=== PATIENT | female | born 1965 | race Caucasian/White ===

== ENCOUNTER 2017-11-04 12:12 | Inpatient (IN) | payer MEDICARE, OTHER ==
[~2017-11-04] VITALS: Ht 172.7 cm; Wt 127.0 kg
[~2017-11-04 12:12] MED LIST: CELEXA20 MG PO; OS-CAL 500+D T1 EACH PO; SAPHRIS10 MG SL; XANAX2 MG PO; ZOLOFT PO
--- OUTSIDE RECORDS SUMMARY | 2017-11-04 12:15 | XMS REPORT | Clinical Summary ---
Author Author [facility] Address Unknown Phone Unavailable Care Team Providers Care Manager Pulmonary Name Role Phone PCP Unavailable Allergies Not on File Current Medications Not on file Active Problems Not on file Encounters Date Type Specialty Care Team Description 10/10/2017 Telephone Transplant Melia Price, Transplant Donor RN Pre-evaluation 09/15/2017 Abstract Transplant Joseluis Luque after 11/03/2016 Social History Tobacco Use Types Packs/Day Years Used Date Never Assessed Sex Assigned at Date Recorded Not on file Last Filed Vital Signs Not on file Plan of Treatment Health Maintenance Due Date Last Done Comments INFLUENZA VACCINE 04/20/2018 Results Not on fileafter 11/03/2016
[2017-11-04 14:09] LABS: BASOPHILS % 0.4 % (0.0-1.0); EOSINOPHILS # (AUTO) 0.1 (0.0-0.4); EOSINOPHILS % 1.5 % (0.0-6.0); LYMPHOCYTES # (AUTO) 1.4 (1.0-3.2); LYMPHOCYTES % 14.6 % (18.0-39.1); MEAN CORPUSCULAR HGB CONC 29.3 g/dL (31-35); MEAN CORPUSCULAR VOLUME 92.3 fL (81-99); MONOCYTES # (AUTO) 0.6 (0.2-0.8); MONOCYTES % 6.2 % (4.4-11.3); NEUTROPHILS # (AUTO) 7.2 (2.1-6.9); NEUTROPHILS % 76.4 % (38.7-80.0); PLATELET COUNT 396 x10e3/uL (140-360); RED BLOOD COUNT 1.96 x10e6/uL (3.6-5.1); RED CELL DISTRIBUTION WIDTH 14.2 % (11.7-14.4)
[2017-11-04 14:12] LABS: HEMATOCRIT 18.1 % (34.2-44.1); HEMOGLOBIN 5.3 g/dL (12.0-16.0)
[2017-11-04] MEDS ORDERED: ACETAMINOPHEN 325 MG TAB PO STA (14:13)
[2017-11-04] MEDS ORDERED: SODIUM CHLORIDE 0.9% 250ML 250 ML IV ONE (14:15)
[2017-11-04] MEDS ORDERED: DIPHENHYDRAMINE HCL INJ 50 MG/ML VIAL IV ONE (14:15)
[2017-11-04 14:18] LABS: INR 1.28; PARTIAL THROMBOPLASTIN TIME 26.8 seconds (23.8-35.5)
[2017-11-04 14:27] LABS: ALBUMIN 3.5 g/dL (3.5-5.0); ALBUMIN/GLOBULIN RATIO 1.1 (0.8-2.0); ANION GAP 13.8 mmol/L (8-16); CALCIUM 9.2 mg/dL (8.4-10.2); CREATININE, SERUM 1.01 mg/dL (0.57-1.11); POTASSIUM 3.8 mmol/L (3.5-5.1)
[2017-11-04 14:35] LABS: BILIRUBIN,URINE NEGATIVE (NEGATIVE); CLARITY,URINE CLEAR (CLEAR); COLOR,URINE YELLOW (YELLOW); KETONES,URINE NEGATIVE (NEGATIVE); LEUKOCYTE ESTERASE ,URINE 1+ (NEGATIVE); NITRITE,URINE NEGATIVE (NEGATIVE); PROTEIN,URINE DIPSTICK NEGATIVE (NEGATIVE); URINE UROBILINOGEN 0.2 mg/dL (0.2 - 1)
[2017-11-04 14:47] LABS: EPITHELIAL CELLS,URINE FEW /LPF; RENAL EPITHELIAL CELLS,URINE FEW; TRANSITIONAL EPI CELLS,URINE FEW
--- OUTSIDE RECORDS SUMMARY | 2017-11-04 14:56 | XMS REPORT | Clinical Summary ---
Author Author LEDA [facility] Address Unknown Phone Unavailable Care Team Providers Care Trapper Bird Name Role Phone PCP Unavailable Allergies Not on File Current Medications Not on file Active Problems Not on file Encounters Date Type Specialty Care Team Description 11/04/2017 Orders Only Transplant Melia Price, Transplant donor RN evaluation (Primary Dx) 10/10/2017 Telephone Transplant Melia Price, Transplant Donor RN Pre-evaluation 09/15/2017 Abstract Transplant Joseluis Luque after 11/03/2016 Social History Tobacco Use Types Packs/Day Years Used Date Never Assessed Sex Assigned at Date Recorded Not on file Last Filed Vital Signs Not on file Plan of Treatment Date Type Specialty Care Team Description 11/17/2017 Orders Only Transplant Hepatology Tiara Mello MD [address] [address] [phone] 11/17/2017 Office Visit Transplant Tiara Mello MD [address] [address] [phone] Melia Stauffer, RN Aaron Hobbs Health Maintenance Due Date Last Done Comments INFLUENZA VACCINE 04/20/2018 Results Not on fileafter 11/03/2016
[2017-11-04] MEDS: PANTOPRAZOLE 40 MG 10ML VIAL IV SCH (15:30)
[2017-11-04 17:55] VITALS: BP 127/59
[2017-11-04 17:57] VITALS: BP 127/59
[2017-11-04] MEDS ORDERED: VITAMIN B-121000 MCG PO (18:47)
[2017-11-04] MEDS ORDERED: BUDESONIDE EC3 MG PO (18:47)
[2017-11-04] MEDS ORDERED: MULTI-VITAMIN1 EACH (18:47)
[2017-11-04] MEDS ORDERED: PENTASA500 MG PO (18:47)
[2017-11-04] MEDS ORDERED: VITAMIN D35000 UNIT (18:47)
[2017-11-04] MEDS ORDERED: FLOMAX0.4 MG PO (18:47)
[2017-11-04] MEDS ORDERED: BIOTIN2500 MCG PO (18:47)
[2017-11-04 20:00] VITALS: BP 127/62
[2017-11-04 20:19] VITALS: BP 127/62
[2017-11-04] MEDS ORDERED: SODIUM CHLORIDE 0.9% 500ML 500 ML ONE (20:25)
[2017-11-04] MEDS ORDERED: ALPRAZOLAM 0.5 MG TAB PO SCH (21:00)
[2017-11-04] MEDS: ALPRAZOLAM 1 MG TAB PO SCH (21:00)
[2017-11-04] MEDS ORDERED: DIPHENHYDRAMINE HCL 25 MG CAP PO ONE (21:00)
[2017-11-04] MEDS: DIPHENHYDRAMINE HCL 25 MG CAP PO SCH (21:23)
[2017-11-05] VITALS (7 sets, daily range): BP systolic 92–134; BP diastolic 51–72
--- NOTE | 2017-11-05 00:42 | Consultation ---
DATE OF CONSULTATION: November 04, 2017 This is a 52-year-old who has history of supposedly Crohn's disease, history of bipolar and also history of obstructive sleep apnea who presented to the hospital because of history of melena and "bloody stool". She was taking Motrin. An EGD as an outpatient was attempted but was unsuccessful. She felt lightheaded and she was found to have anemia with hemoglobin as low as 5.3. She denies any abdominal pain, nausea or vomiting. Her other medical problems include history of bipolar disorder, history of obstructive sleep apnea, status post hysterectomy. FAMILY HISTORY: Significant for diabetes. ALLERGIES: PENICILLIN AND SULFA. SOCIAL HISTORY: Quit smoking 3 years ago. No alcohol use. REVIEW OF SYSTEMS: Denies any chest pain. Denies any shortness of breath. Denies any dysphagia or odynophagia. Denies any dysuria or hematuria or any kind of syncopal episode. MEDICATIONS: On admission, Xanax, , budesonide, calcium, Calciferol, Pentasa, multivitamin and Tamsulosin. PHYSICAL EXAMINATION GENERAL: The patient is awake, alert, appears to be stable and not in any acute distress at this point. VITAL SIGNS: Afebrile currently with stable vital signs. HEENT: Normocephalic, atraumatic. Sclerae anicteric. NECK: Supple. HEART: Sounds regular. LUNGS: Sounds clear. ABDOMEN: Soft. There is no distention at this point. Nontender. EXTREMITIES: No clubbing. LABORATORY DATA: Significant for WBC of 9.48, hemoglobin of 5.3, hematocrit of 18.1. PTT is 15 and CMP is normal. IMPRESSION 1. Gastrointestinal bleed with black tarry stool, possibility of ulcer disease. 2. History of Crohn's disease. 3. History of bipolar. RECOMMENDATIONS: Continue on proton pump inhibitor at this point. Transfuse with packed red blood cells. Will proceed with EGD tomorrow and follow labs. Job#: [id number]
[2017-11-05 06:41] LABS: BASOPHILS # (AUTO) 0.1 (0.0-0.1); BASOPHILS % 0.8 % (0.0-1.0); EOSINOPHILS # (AUTO) 0.2 (0.0-0.4); EOSINOPHILS % 2.1 % (0.0-6.0); HEMATOCRIT 23.5 % (34.2-44.1); HEMOGLOBIN 7.6 g/dL (12.0-16.0); LYMPHOCYTES # (AUTO) 1.7 (1.0-3.2); LYMPHOCYTES % 16.9 % (18.0-39.1); MEAN CORPUSCULAR HEMOGLOBIN 28.5 pg (28-32); MEAN CORPUSCULAR HGB CONC 32.3 g/dL (31-35); MONOCYTES # (AUTO) 0.9 (0.2-0.8); MONOCYTES % 8.5 % (4.4-11.3); NEUTROPHILS # (AUTO) 7.2 (2.1-6.9); NEUTROPHILS % 70.3 % (38.7-80.0); PLATELET COUNT 441 x10e3/uL (140-360); RED BLOOD COUNT 2.67 x10e6/uL (3.6-5.1); RED CELL DISTRIBUTION WIDTH 15.8 % (11.7-14.4)
[2017-11-05] MEDS ORDERED: DIPHENHYDRAMINE HCL 25 MG CAP PO ONE (07:00)
[2017-11-05 07:12] LABS: ANION GAP 12.2 mmol/L (8-16); BLOOD UREA NITROGEN 15 mg/dL (7-26); BUN/CREATININE RATIO 16 (6-25); CALCIUM 9.1 mg/dL (8.4-10.2); CARBON DIOXIDE 26 mmol/L (22-29); CHLORIDE 107 mmol/L (98-107); CREATININE, SERUM 0.92 mg/dL (0.57-1.11); EST GLOMERULAR FILTRATION RATE > 60 ML/MIN (60-); GLUCOSE 96 mg/dL (74-118); POTASSIUM 4.2 mmol/L (3.5-5.1); SODIUM 141 mmol/L (136-145)
[2017-11-05] MEDS: PANTOPRAZOLE 40 MG 10ML VIAL IV SCH (08:10)
[2017-11-05] MEDS: DIPHENHYDRAMINE HCL 25 MG CAP PO SCH ×4 (09:00→20:59)
[2017-11-05] MEDS: ALPRAZOLAM 1 MG TAB PO SCH ×3 (09:00→20:59)
[2017-11-05] MEDS ORDERED: BISACODYL 5 MG TAB EC PO NR (13:00)
[2017-11-05] MEDS ORDERED: PEG (High)/E-LYTE SOLN 4,000 ML BTL PO NR (13:30)
[2017-11-05] MEDS ORDERED: PROPOFOL IV EMULSION 10 MG/ML 20 ML VIAL ONE (17:01)
[2017-11-05] MEDS ORDERED: LIDOCAINE HCL 2% LOCAL INJ 5 ML SDV VIAL INJ ONE (17:01)
[2017-11-05] MEDS: TAMSULOSIN HCL 0.4 MG CAP PO SCH (17:04)
[2017-11-05] MEDS ORDERED: ONDANSETRON HCL INJ 2 MG/ML VIAL IV PRN (17:15)
[2017-11-05] MEDS ORDERED: MIDAZOLAM HCL 2 MG/2 ML VIAL ONE (19:51)
[2017-11-05] MEDS ORDERED: BISACODYL 5 MG TAB EC PO ONE (20:00)
[2017-11-05] MEDS: BUDESONIDE 3 MG CAPCR PO SCH (20:59)
[2017-11-05] MEDS: MESALAMINE 500 MG CAPCR PO SCH (20:59)
[2017-11-06] VITALS: BP 101/54
[2017-11-06 04:00] VITALS: BP 115/58
[2017-11-06 07:09] LABS: BASOPHILS # (AUTO) 0.1 (0.0-0.1); BASOPHILS % 0.7 % (0.0-1.0); EOSINOPHILS # (AUTO) 0.2 (0.0-0.4); EOSINOPHILS % 2.1 % (0.0-6.0); HEMATOCRIT 26.1 % (34.2-44.1); HEMOGLOBIN 8.1 g/dL (12.0-16.0); LYMPHOCYTES # (AUTO) 1.4 (1.0-3.2); LYMPHOCYTES % 16.2 % (18.0-39.1); MEAN CORPUSCULAR HEMOGLOBIN 27.9 pg (28-32); MONOCYTES # (AUTO) 0.8 (0.2-0.8); NEUTROPHILS # (AUTO) 6.1 (2.1-6.9); NEUTROPHILS % 71.5 % (38.7-80.0); PLATELET COUNT 420 x10e3/uL (140-360); RED CELL DISTRIBUTION WIDTH 15.8 % (11.7-14.4)
[2017-11-06 07:32] LABS: ANION GAP 13.2 mmol/L (8-16); CALCIUM 9.3 mg/dL (8.4-10.2); CREATININE, SERUM 0.97 mg/dL (0.57-1.11); POTASSIUM 4.2 mmol/L (3.5-5.1)
[2017-11-06 07:35] VITALS: BP 125/62
[2017-11-06] MEDS ORDERED: LORAZEPAM INJ 2 MG/ML VIAL IV ONE (08:00)
[2017-11-06] MEDS: DIPHENHYDRAMINE HCL 25 MG CAP PO SCH ×2 (08:05→13:00)
[2017-11-06] MEDS: ALPRAZOLAM 1 MG TAB PO SCH ×2 (08:05→15:15)
[2017-11-06] MEDS ORDERED: MULTIVITAMINS/MINERALS TAB PO SCH (09:00)
[2017-11-06] MEDS ORDERED: CYANOCOBALAMIN 1,000 MCG TAB PO SCH (09:00)
[2017-11-06] MEDS: TAMSULOSIN HCL 0.4 MG CAP PO SCH ×2 (09:00→16:42)
[2017-11-06] MEDS ORDERED: OYST-CAL-D 500MG TABLET PO SCH (09:00)
[2017-11-06] MEDS: BUDESONIDE 3 MG CAPCR PO SCH ×2 (09:00→15:15)
[2017-11-06] MEDS ORDERED: CITALOPRAM HYDROBROMIDE 20 MG TAB PO SCH (09:00)
[2017-11-06] MEDS: MESALAMINE 500 MG CAPCR PO SCH ×2 (09:00→15:15)
[2017-11-06 09:45] VITALS: BP 125/62
[2017-11-06] MEDS ORDERED: ACETAMINOPHEN 325 MG TAB PO PRN (10:30)
[2017-11-06] MEDS: PANTOPRAZOLE 40 MG 10ML VIAL IV SCH (10:45)
[2017-11-06] MEDS ORDERED: ONDANSETRON HCL 4 MG ORAL DISINTEGRATING TAB PO PRN (12:15)
[2017-11-06 13:24] VITALS: BP 126/60
[2017-11-06 15:35] VITALS: BP 138/63
--- NOTE | 2017-11-06 17:08 | Discharge Summary ---
PRIMARY CARE DOCTOR: Dr. Robbin Jackson FINAL DIAGNOSIS: Acute blood loss anemia. SECONDARY DIAGNOSES 1. Crohn disease, stable. 2. Bipolar disorder. CABINET WORKER: Dr. Diego of GI. PROCEDURES/STUDIES PERFORMED 1. Esophagogastroduodenoscopy. 2. Colonoscopy. HISTORY: Per [facility]. HOSPITAL COURSE: The patient received 2 units of blood. At the time of discharge, her hemoglobin is 8. Both her EGD and colonoscopy were fairly unremarkable, other than a little bit of gastritis. Potentially, this might be because her bleed was almost 3 weeks ago, and that is why we are not seeing them. The other possibility is that the bleeder comes and goes, so we did not catch it. One possibility would be getting a capsule endoscopy as an outpatient, especially if this recurs. I have updated her PCP, and she may need to follow up with her GI doctor. I have updated the patient as well. The patient was seen and examined today. It took 32 minutes total today to discharge this patient. CONDITION ON DISCHARGE: Stable. DISCHARGE MEDICATIONS: Please see medication reconciliation form. DAYANARA RAMÍREZ M.D. Job#: [id number] cc:ROBBIN JACKSON M.D.
[2017-11-06] MEDS ORDERED: PROPOFOL IV EMULSION 10 MG/ML 20 ML VIAL ONE (17:50)
[2017-11-06] MEDS ORDERED: LIDOCAINE HCL 2% LOCAL INJ 5 ML SDV VIAL INJ ONE (17:50)
== END 2017-11-06 18:13 | disposition home or self-care (01) | DRG 812 ==
LOC: ER 12:12 → ERHOLD 14:54 → MED/SURG3 17:22
PROVIDERS: ADMIT Internal Medicine; ATTEND Internal Medicine
PROC: 30233N1 Transfusion of Nonautologous Red Blood Cells into Peripheral Vein, Percutaneous Approach (ICD-10-PCS; 2017-11-04)
PROC: 0DB68ZX Excision of Stomach, Via Natural or Artificial Opening Endoscopic, Diagnostic (ICD-10-PCS; 2017-11-05)
PROC: 0DB38ZX Excision of Lower Esophagus, Via Natural or Artificial Opening Endoscopic, Diagnostic (ICD-10-PCS; 2017-11-05)
PROC: 0DJD8ZZ Inspection of Lower Intestinal Tract, Via Natural or Artificial Opening Endoscopic (ICD-10-PCS; principal; 2017-11-06 13:30)
DX: D62 Acute posthemorrhagic anemia (principal); K50.90 Crohn's disease, unspecified, without complications; K92.2 Gastrointestinal hemorrhage, unspecified; F31.9 Bipolar disorder, unspecified; G47.33 Obstructive sleep apnea (adult) (pediatric); K64.8 Other hemorrhoids; K44.9 Diaphragmatic hernia without obstruction or gangrene; K29.70 Gastritis, unspecified, without bleeding
CPT/HCPCS: 36415; 43239; 45378; 80048; 80053; 81001; 82270; 85025; 85610; 85730; 86850; 86900; 86920; 88305; 88312; 99284; J1200; J2001; J2060; J2250; J2405; J7040; J7050; P9016

== ENCOUNTER 2018-06-30 11:36 | Emergency (ER) | payer MEDICARE ==
[~2018-06-30] VITALS: Ht 172.7 cm; Wt 127.0 kg
[~2018-06-30 11:36] MED LIST changes: +BIOTIN2500 MCG PO; +BUDESONIDE EC3 MG PO; +FLOMAX0.4 MG PO; +MULTI-VITAMIN1 EACH; +PENTASA500 MG PO; +VITAMIN B-121000 MCG PO; +VITAMIN D35000 UNIT
--- OUTSIDE RECORDS SUMMARY | 2018-06-30 11:39 | XMS REPORT | Clinical Summary ---
Author [facility] Address Unknown Phone Unavailable Care Team Providers Care Harpsichord Maker Name Role Phone Sharpless PCP Allergies Comments Active Allergy Reactions Severity Noted Date Extreme Vomiting Amoxicillin Nausea And 07/31/2017 Vomiting Elevated Liver enzymes-patient stated not a true allergy Azathioprine Other (See 10/08/2017 Comments) Extreme Vomiting Sulfa (Sulfonamide Nausea And 07/31/2017 Antibiotics) Vomiting Medications End Date Status Medication Sig Dispensed Refills Start Date Active ALPRAZolam (XANAX) 2 MG Take 2 mg by 0 tablet mouth. Active asenapine [address] 10 mg 0 under the tongue once at bedtime. Active biotin 10 mg Tab Take 10,000 0 mcg by mouth once. Active budesonide (ENTOCORT EC) Take 9 mg by 0 3 mg 24 hr capsule mouth daily. 8 Active calcium carbonate-vitamin Take by 0 D3 (OSCAL-D) 500 mouth. mg(1,250mg) -200 unit per tablet Active cholecalciferol, vitamin Take 5,000 0 D3, 5,000 unit capsule Units by mouth. Active citalopram (CELEXA) 40 MG Take 40 mg by 0 tablet mouth daily. Active cyanocobalamin, vitamin Take 3,000 0 B-12, 1,000 mcg/mL Drop mcg by mouth daily. Active geriatric Take by 0 multivitamin-min tablet mouth. Active BACILLUS COAGULANS Take by 0 (PROBIOTIC, B. COAGULANS, mouth. ORAL) Active diphenhydrAMINE Take 25 mg by 0 (BENADRYL) 25 mg tablet mouth daily. Active levocetirizine (XYZAL) 5 Take 5 mg by 0 MG tablet mouth daily. Active mesalamine (PENTASA) 500 Take 1,000 mg 0 01/23/201 MG CR capsule by mouth 3 8 (three) times daily. 11/24/2017 tamsulosin (FLOMAX) 0.4 Take 0.4 mg 0 08/26/201 mg Cp24 24 hr capsule by mouth 2 8 (two) times daily. Active Problems Not on file Encounters Care Team Description Date Type Specialty Brigitte Richardson RN Follow-up 12/11/2017 Telephone Transplant Brigitte Richardson RN Results 12/04/2017 Telephone Transplant Tiara Mello MD Transplant donor evaluation 11/28/2017 Hospital Radiology Encounter Tiara Mello MD Springer, Laura L, LCSW Transplant donor evaluation (Primary Dx) 11/28/2017 Evaluation Transplant Tiara Mello MD Transplant donor evaluation 11/28/2017 Hospital Cardiology Encounter Tiara Mello MD Transplant donor evaluation 11/28/2017 Orders Only Transplant Hepatology Tiara Mello MD Transplant donor evaluation (Primary Dx) 11/28/2017 Evaluation Transplant Tiara Mello MD Transplant donor evaluation 11/28/2017 Orders Only Transplant Tiara Mello MD 11/27/2017 Outside Orders Melia Price RN Results 11/26/2017 Telephone Transplant Tiara Mello MD Deleon, Jane Frances D, RN Rose, Andrea Transplant donor evaluation (Primary Dx) 11/17/2017 Office Visit Transplant Tiara Mello MD Transplant donor evaluation 11/17/2017 Orders Only Transplant Hepatology Melia Price RN Transplant donor evaluation (Primary Dx) 11/04/2017 Orders Only Transplant Melia Price RN Transplant Donor Pre-evaluation 10/10/2017 Telephone Transplant Joseluis Luque 09/15/2017 Abstract Transplant after 06/29/2017 Family History Medical History Relation Name Comments Anxiety disorder Brother Cirrhosis Brother Depression Brother Diabetes Brother Neuropathy Brother Other Brother tachycardia Schizophrenia Brother No Known Problem Brother history not known Anemia Brother Anxiety disorder Brother Arthritis Brother Cataracts Brother Coronary artery disease Brother Diabetes Brother Hyperlipidemia Brother Hypertension Brother Kidney failure Brother Neuropathy Brother Other Brother retinopathy Cancer Brother prostate Diabetes Brother Hyperlipidemia Brother Hypertension Brother Blindness Father age related; legally blind COPD Father Cancer Father prostate Hypertension Father Cancer Maternal Aunt lung Coronary artery disease Maternal Aunt Hypertension Maternal Aunt Other Maternal Guillain-Romayor syndrome Grandfather No Known Problem Maternal unknown Grandmother Cancer Maternal lung Uncle Coronary artery disease Maternal Uncle Hypertension Maternal Uncle COPD Mother Diabetes Mother Hyperlipidemia Mother Hypertension Mother Osteoporosis Mother Cancer Paternal prostate Grandfather Stroke Paternal Grandfather Cancer Paternal breast Grandmother Diabetes Paternal Grandmother Stroke Paternal Grandmother Anxiety disorder Sister Depression Sister Fibromyalgia Sister Hyperlipidemia Sister Hypertension Sister Migraines Sister Osteoporosis Sister Post-traumatic stress Sister disorder Scoliosis Sister Anxiety disorder Sister Bipolar disorder Sister Depression Sister Migraines Sister Relation Name Status Comments Brother Brother Alive Brother Alive Brother Father Maternal Aunt Maternal Grandfather Maternal Grandmother Maternal Uncle Mother Alive Paternal Grandfather Paternal Grandmother Sister Alive Sister Alive Social History Date Tobacco Use Types Packs/Day Years Used Quit: 2014 Former Smoker 2 35 Smokeless Tobacco: Current User Tobacco Cessation: Ready to Quit: Yes Comments: from 2014 (vapor) Alcohol Use Drinks/Week oz/Week Comments No Sex Assigned at Date Recorded Not on file Industry Job Start Date Occupation Not on file Not on file Not on file Travel End Travel History Travel Start No recent travel history available. Last Filed Vital Signs Time Taken Vital Sign Reading 11/28/2017 8:52 AM CDT Blood Pressure 109/64 11/28/2017 8:52 AM CDT Pulse 93 11/28/2017 8:52 AM CDT Temperature 36.3 C (97.4 F) 11/28/2017 8:52 AM CDT Respiratory Rate 16 - Oxygen Saturation - - Inhaled Oxygen - Concentration 11/28/2017 8:52 AM CDT Weight 81.4 kg (179 lb 8 oz) 11/17/2017 10:25 AM CDT Height 160 cm (5' 2.99") 11/28/2017 8:52 AM CDT Body Mass Index 31.81 Plan of Treatment Health Maintenance Due Date Last Done Comments INFLUENZA VACCINE 04/20/2018 Procedures Comments Procedure Name Priority Date/Time Associated Diagnosis TRANSFUSION SERVICE 11/29/2017 REPORT - SCAN 5:[address]/CTA ABDOMEN & PELVIS Routine 11/28/2017 Transplant donor 2:07 PM CDT evaluation XR CHEST 2 VIEWS Routine 11/28/2017 11:52 AM CDT ECG 12-LEAD Routine 11/28/2017 Transplant donor 11:23 AM CDT evaluation URINALYSIS W/ MICROSCOPIC Routine 11/28/2017 Transplant donor 8:06 AM CDT evaluation URINE CULTURE Routine 11/28/2017 Transplant donor 8:06 AM CDT evaluation HEPATITIS C PCR, Routine 11/28/2017 Transplant donor QUANTITATIVE 8:03 AM CDT evaluation HIV-1 ANTIGEN WITH Routine 11/28/2017 Transplant donor HIV-1/2 ANTIBODY 8:03 AM CDT evaluation LACTATE DEHYDROGENASE Routine 11/28/2017 Transplant donor (LDH) 8:03 AM CDT evaluation LIPID PANEL Routine 11/28/2017 Transplant donor 8:03 AM CDT evaluation MAGNESIUM Routine 11/28/2017 Transplant donor 8:03 AM CDT evaluation PHOSPHORUS Routine 11/28/2017 Transplant donor 8:03 AM CDT evaluation PT/APTT Routine 11/28/2017 Transplant donor 8:03 AM CDT evaluation RPR Routine 11/28/2017 Transplant donor 8:03 AM CDT evaluation HEPATITIS B SURFACE Routine 11/28/2017 Transplant donor ANTIGEN 8:03 AM CDT evaluation HEPATITIS B SURFACE Routine 11/28/2017 Transplant donor ANTIBODY 8:03 AM CDT evaluation HEPATITIS B CORE Routine 11/28/2017 Transplant donor ANTIBODY, IGM 8:03 AM CDT evaluation HCG, QUANTITATIVE, Routine 11/28/2017 Transplant donor 8:03 AM CDT evaluation GAMMA GLUTAMYL Routine 11/28/2017 Transplant donor TRANSFERASE (GGT) 8:03 AM CDT evaluation EBV ANTIBODY, IGM Routine 11/28/2017 Transplant donor 8:03 AM CDT evaluation EBV ANTIBODY, IGG Routine 11/28/2017 Transplant donor 8:03 AM CDT evaluation CYTOMEGALOVIRUS ANTIBODY, Routine 11/28/2017 Transplant donor IGM 8:03 AM CDT evaluation CYTOMEGALOVIRUS ANTIBODY, Routine 11/28/2017 Transplant donor IGG 8:03 AM CDT evaluation CREATININE Routine 11/28/2017 Transplant donor 8:03 AM CDT evaluation BLOOD TYPING, AUTOMATED Routine 11/28/2017 Transplant donor 8:02 AM CDT evaluation MICROALBUMIN, 24 HOUR Routine 11/28/2017 Transplant donor URINE 7:55 AM CDT evaluation PROTEIN, 24 HOUR URINE Routine 11/28/2017 Transplant donor 7:55 AM CDT evaluation CREATININE CLEARANCE AP Routine 11/28/2017 Transplant donor 7:55 AM CDT evaluation TRANSFUSION SERVICE 11/18/2017 REPORT - SCAN 5:59 PM CDT MICROALBUMIN, RANDOM Routine 11/17/2017 Transplant donor URINE 10:51 AM CDT evaluation PROTEIN, RANDOM URINE Routine 11/17/2017 Transplant donor 10:51 AM CDT evaluation URINALYSIS W/ MICROSCOPIC Routine 11/17/2017 Transplant donor 10:51 AM CDT evaluation HEMOGLOBIN A1C Routine 11/17/2017 Transplant donor 10:51 AM CDT evaluation HCG, QUANTITATIVE, Routine 11/17/2017 Transplant donor 10:51 AM CDT evaluation CREATININE, RANDOM URINE Routine 11/17/2017 Transplant donor 10:51 AM CDT evaluation URINE CULTURE Routine 11/17/2017 Transplant donor 10:51 AM CDT evaluation CBC W/PLT COUNT & AUTO Routine 11/17/2017 Transplant donor DIFFERENTIAL 10:50 AM CDT evaluation HLA TYPING CI Routine 11/17/2017 Transplant donor 10:50 AM CDT evaluation HLA TYPING CII Routine 11/17/2017 Transplant donor 10:50 AM CDT evaluation HEPATIC FUNCTION PANEL Routine 11/17/2017 Transplant donor 10:50 AM CDT evaluation CBC W/PLT COUNT & AUTO Routine 11/17/2017 Transplant donor DIFFERENTIAL 10:50 AM CDT evaluation BASIC METABOLIC PANEL (7) Routine 11/17/2017 Transplant donor 10:50 AM CDT evaluation BLOOD TYPING, AUTOMATED Routine 11/17/2017 Transplant donor 10:49 AM CDT evaluation after 06/29/2017 Results * TRANSFUSION SERVICE REPORT - SCAN (11/29/2017 5:45 PM CDT) Only the most recent of 2 results within the time period is included. Narrative Performed At * CTA abdomen & pelvis (11/28/2017 2:07 PM CDT) Narrative Performed At Addendum Begins [employer] [facility] REPORT STATUS:A Addendum: November 28, 2017 2010 hours I have reviewed the CT images for this study and I concur with the nonvascular imaging findings as dictated. Signed: Slime Villaotro MD Report Verified Date/Time:11/28/2017 20:06:37 Reading Location: [facility] [id number] Angio Body Reading Room Addendum Ends FINAL REPORT CT angiography of the abdominal aorta and renal arteries, 28 Nov 2017. Comparison: None available. INDICATION: This is a 52 year old female being evaluated as a potential renal donor.This study is performed in an attempt to avoid an invasive procedure. TECHNIQUE: Spiral acquisition before and during intravenous contrast administration using a [employer] multidetector CT scanner. Images were obtained before and during the dynamic passage of intravenous contrast material.Multi-planar 3-D volume-rendering reconstruction was performed using an independent workstation interactively by the interpreting physician as well as the 3-D specialist for optimal visualisation of the vital anatomy for renal transplantation. Please refer to the contrast sheet scanned in the [facility] for the amount and route of contrast given. This exam was performed according to our departmental dose-optimisation programme, which includes automated exposure control, adjustment of the mA and/or kV according to patient size and/or use of iterative reconstruction technique. Dose modulation, iterative reconstruction, and/or weight based adjustment of the mA/kV was utilized to reduce the radiation dose to as low as reasonably achievable. FINDINGS: VASCULAR:- The abdominal aorta is normal in course, calibre and contour. Atherosclerosis is identified. No ectasia or aneurysmal dilation is seen. There is no evidence of acute aortic pathology, specifically, there is no dissection, intramural hematoma, or contained rupture. Quantitative dimensions of the abdominal aorta are as follows: 1.7 cm at the mesenteric segment; 1.5 cm at the renal segment; and 1.2 cm at the aortic bifurcation. The pelvic arteries and the associated pelvic veins are patent with no arterial stenosis or venous thrombosis identified. There are two left and single right renal arteries. The right renal artery measures 4.3 x 4.8 mm proximally, and bifurcates at a distance of approximately 4.3 cm from its takeoff. The two left renal artery arises 5 mm above each other. The superior left renal artery measures approximately 5.6 x 4.1 mm at its takeoff, and the inferior accessory renal artery small in size, measuring approximately 2 mm in diameter. The superior left renal artery reaches the renal pelvis at a distance of approximately 4.7 cm and the inferior sensory left renal artery reaches the lower pole of the kidney, at a distance of approximately 5.5 cm. There are single left and right renal veins that drain normally into inferior vena cava (i.e. the left renal vein is anterior to the IVC). The left renal vein enters the IVC with a calibre of 4.8 x 14.4 mm and the right renal vein enters the IVC will a calibre of8.3 x 10.7 mm. In addition, there is also another tiny inferior right renal vein, and straight 1.9 cm below the more superior right renal vein. As a tiny vein, approximately 2 mm in diameter. The coeliac axis, SMA, and ANDI are widely patent. The mesenteric veins are widely patent. NON-VASCULAR:- The lung bases are unremarkable. No pleural effusion is identified. Minimal dependent changes are seen. The spleen, liver, gallbladder and pancreas appear normal. Tiny hypodensities identified in the liver, too small to characterize, likely represent tiny cysts. The liver edge is smooth. No abnormal enhancing structure is noted. The adrenal glands are normal in size and shape. Both kidneys are normal in size and shape. There is no evidence for hydronephrosis, or perirenal fluid collection. No renal stone is present. No renal cyst is identified. The right kidney measures 10.3 cm in length and with a parenchymal volume of 125 cc.The left kidney measures 10.9 cm in length and with a parenchymal volume of 123 cc. There are single ureters, bilaterally. There is no significant retroperitoneal adenopathy.No free fluid or free air is identified. The uterus is present. No obvious abnormal adnexal masses seen. CT is not optimised in the assessment of pelvic gynaecological structures. Bowel is not well evaluated in CT angiography as enteric contrast is not given.No gross abnormality is identified.The appendix appears unremarkable. No acute bony pathology is seen. CONCLUSIONS: 1. The kidneys are normal in size and shape. There is no acute renal pathology. Quantitative dimensions and volumes are as described above. 2. Two left and single right renal arteries, single left and two right renal veins are seen. They are patent with no stenosis or venous thrombosis. 3. The abdominal aorta is normal in course, calibre and contour. There is no evidence of acute aortic pathology, specifically, there is no dissection, intramural hematoma, or contained rupture. Quantitative dimension of the aorta are as noted. 4. Other findings as described above. 5. An addendum will be dictated regarding the non-vascular findings as the [employer] Auditor Radiologist. Signed: Jef Gaxiola MD Report Verified Date/Time:11/28/2017 14:45:57 Reading Location: [place] [address] Cardiology MRI Procedure Note Interface, External Ris In - 11/28/2017 8:08 PM CDT Addendum Begins REPORT STATUS:A Addendum: November 28, 2017 2010 hours I have reviewed the CT images for this study and I concur with the nonvascular imaging findings as dictated. Signed: Slime Villatoro MD Report Verified Date/Time: 11/28/2017 20:06:37 Reading Location: [place] [id number] Angio Body Reading Room Addendum Ends FINAL REPORT CT angiography of the abdominal aorta and renal arteries, 28 Nov 2017. Comparison: None available. INDICATION: This is a 52 year old female being evaluated as a potential renal donor. This study is performed in an attempt to avoid an invasive procedure. TECHNIQUE: Spiral acquisition before and during intravenous contrast administration using a [employer] multidetector CT scanner. Images were obtained before and during the dynamic passage of intravenous contrast material. Multi-planar 3-D volume-rendering reconstruction was performed using an independent workstation interactively by the interpreting physician as well as the 3-D specialist for optimal visualisation of the vital anatomy for renal transplantation. Please refer to the contrast sheet scanned in the [employer] system for the amount and route of contrast given. This exam was performed according to our departmental dose-optimisation programme, which includes automated exposure control, adjustment of the mA and/or kV according to patient size and/or use of iterative reconstruction technique. Dose modulation, iterative reconstruction, and/or weight based adjustment of the mA/kV was utilized to reduce the radiation dose to as low as reasonably achievable. FINDINGS: VASCULAR:- The abdominal aorta is normal in course, calibre and contour. Atherosclerosis is identified. No ectasia or aneurysmal dilation is seen. There is no evidence of acute aortic pathology, specifically, there is no dissection, intramural hematoma, or contained rupture. Quantitative dimensions of the abdominal aorta are as follows: 1.7 cm at the mesenteric segment; 1.5 cm at the renal segment; and 1.2 cm at the aortic bifurcation. The pelvic arteries and the associated pelvic veins are patent with no arterial stenosis or venous thrombosis identified. There are two left and single right renal arteries. The right renal artery measures 4.3 x 4.8 mm proximally, and bifurcates at a distance of approximately 4.3 cm from its takeoff. The two left renal artery arises 5 mm above each other. The superior left renal artery measures approximately 5.6 x 4.1 mm at its takeoff, and the inferior accessory renal artery small in size, measuring approximately 2 mm in diameter. The superior left renal artery reaches the renal pelvis at a distance of approximately 4.7 cm and the inferior sensory left renal artery reaches the lower pole of the kidney, at a distance of approximately 5.5 cm. There are single left and right renal veins that drain normally into inferior vena cava (i.e. the left renal vein is anterior to the IVC). The left renal vein enters the IVC with a calibre of 4.8 x 14.4 mm and the right renal vein enters the IVC will a calibre of 8.3 x 10.7 mm. In addition, there is also another tiny inferior right renal vein, and straight 1.9 cm below the more superior right renal vein. As a tiny vein, approximately 2 mm in diameter. The coeliac axis, SMA, and ANDI are widely patent. The mesenteric veins are widely patent. NON-VASCULAR:- The lung bases are unremarkable. No pleural effusion is identified. Minimal dependent changes are seen. The spleen, liver, gallbladder and pancreas appear normal. Tiny hypodensities identified in the liver, too small to characterize, likely represent tiny cysts. The liver edge is smooth. No abnormal enhancing structure is noted. The adrenal glands are normal in size and shape. Both kidneys are normal in size and shape. There is no evidence for hydronephrosis, or perirenal fluid collection. No renal stone is present. No renal cyst is identified. The right kidney measures 10.3 cm in length and with a parenchymal volume of 125 cc. The left kidney measures 10.9 cm in length and with a parenchymal volume of 123 cc. There are single ureters, bilaterally. There is no significant retroperitoneal adenopathy. No free fluid or free air is identified. The uterus is present. No obvious abnormal adnexal masses seen. CT is not optimised in the assessment of pelvic gynaecological structures. Bowel is not well evaluated in CT angiography as enteric contrast is not given. No gross abnormality is identified. The appendix appears unremarkable. No acute bony pathology is seen. CONCLUSIONS: 1. The kidneys are normal in size and shape. There is no acute renal pathology. Quantitative dimensions and volumes are as described above. 2. Two left and single right renal arteries, single left and two right renal veins are seen. They are patent with no stenosis or venous thrombosis. 3. The abdominal aorta is normal in course, calibre and contour. There is no evidence of acute aortic pathology, specifically, there is no dissection, intramural hematoma, or contained rupture. Quantitative dimension of the aorta are as noted. 4. Other findings as described above. 5. An addendum will be dictated regarding the non-vascular findings as the Electronic Data Processing Auditor Radiologist. Signed: Jef Gaxiola MD Report Verified Date/Time: 11/28/2017 14:45:57 Reading Location: [place] [address] Cardiology MRI Performing Organization Address [facility] Phone Number GE RIS * XR chest 2 views (11/28/2017 11:52 AM CDT) Narrative Performed At FINAL REPORT [facility] RIS Chest 2 views 11/28/2017 11:50 AM CLINICAL HISTORY: Potential living donor for kidney transplant COMPARISON: None available FINDINGS: The lungs are clear. Cardiomediastinal contours are within normal limits. The central pulmonary vasculature is not engorged. The visualized skeleton is intact. IMPRESSION: No acute radiographic abnormalities. Signed: Augustus Cervantes MD Report Verified Date/Time:11/28/2017 11:50:53 Reading Location: [facility] Radiology Reading Room Procedure Note Interface, External Ris In - 11/28/2017 11:53 AM CDT FINAL REPORT Chest 2 views 11/28/2017 11:50 AM CLINICAL HISTORY: Potential living donor for kidney transplant COMPARISON: None available FINDINGS: The lungs are clear. Cardiomediastinal contours are within normal limits. The central pulmonary vasculature is not engorged. The visualized skeleton is intact. IMPRESSION: No acute radiographic abnormalities. Signed: Augustus Cervantes MD Report Verified Date/Time: 11/28/2017 11:50:53 Reading Location: [facility] Radiology Reading Room Performing Organization Address [facility] Phone Number GE RIS * ECG 12 lead (11/28/2017 11:23 AM CDT) Narrative Performed At Ventricular Rate 83 BPM GE MUSE Atrial Rate 83 BPM P-R Interval 130 ms QRS Duration 82 ms Q-T Interval 438 ms QTC Calculation(Bazett) 514 ms P [place] 56 degrees R [place] 63 degrees T [place] 8 degrees Normal sinus rhythm T wave abnormality, consider inferolateral ischemia Prolonged QT Abnormal ECG No previous ECGs available Confirmed by Tiara Mello ([id number]) on 12/05/2017 2:20:31 PM Procedure Note Interface, External Ris In - 12/05/2017 2:20 PM CDT Ventricular Rate 83 BPM Atrial Rate 83 BPM P-R Interval 130 ms QRS Duration 82 ms Q-T Interval 438 ms QTC Calculation(Bazett) 514 ms P [place] 56 degrees R [place] 63 degrees T [place] 8 degrees Normal sinus rhythm T wave abnormality, consider inferolateral ischemia Prolonged QT Abnormal ECG No previous ECGs available Confirmed by Tiara Mello ([id number]) on 12/05/2017 2:20:31 PM Performing Organization Address City/[facility]/Zipcode Phone Number GE MUSE * Urinalysis w/Microscopic (11/28/2017 8:06 AM CDT) Only the most recent of 2 results within the time period is included. Color, UA Yellow [facility] Clarity, UA Clear [facility] Specific [place], UA 1.017 1.001 - 1.035 [facility] pH, UA 5.0 5.0 - 8.0 [facility] Protein, UA Negative Negative [facility] Glucose, UA Negative Negative [facility] Ketones, UA Negative Negative [facility] Bilirubin, UA Negative Negative [facility] Blood, UA Negative Negative [facility] Nitrite, UA Negative Negative [facility] Leukocytes, UA Trace (A) Negative [facility] Urobilinogen, UA 0.2 0.2 - 1.0 mg/dL [facility] RBC, UA <1 /HPF [facility] WBC, UA 1 /HPF [facility] Specimen Source [facility] Specimen Urine Performing Organization Address City/[facility]/Zipcode Phone Number [facility] [address] [place] [address] [facility] [place] * Urine culture (11/28/2017 8:06 AM CDT) Only the most recent of 2 results within the time period is included. Result 10-19,000 col/mL Enterococcus [facility] species (A) [facility] Specimen Urine - Urine, Unspecified Source Narrative Performed At 30-39,000 col/mL skin aleshia [facility] Antibiotic Method Susceptibility Organism Ampicillin <=2: Susceptible Enterococcus species Linezolid 1: Susceptible Enterococcus species Nitrofurantoin 256: Resistant Enterococcus species Tetracycline >=16: Resistant Enterococcus species Vancomycin <=0.5: Susceptible Enterococcus species Performing Organization Address [facility] Phone Number [address] [address] [phone] [place] [address] * PT/aPTT (11/28/2017 8:03 AM CDT) Protime 16.2 (H) 11.7 - 14.7 seconds [facility] INR 1.3 <=5.9 [facility] PTT 28.9 22.5 - 36.0 seconds [facility] Specimen Blood Narrative Performed At RECOMMENDED COUMADIN/WARFARIN INR THERAPY RANGES [facility] STANDARD DOSE: 2.0 - 3.0 Includes: PROPHYLAXIS for venous thrombosis, [facility] systemic embolization; TREATMENT for venous thrombosis and/or pulmonary embolus. HIGH RISK: Target INR is 2.5-3.5 for patients with mechanical heart valves. Performing Organization Address [facility] Phone Number [address] [address] [phone] [address] * HIV-1 Antigen with HIV-1/2 Antibody (11/28/2017 8:03 AM CDT) HIV-1 Antigen with HIV NON-REACTIVE Nonreactive [facility] 1&2 Antibody [facility] Specimen Blood Performing Organization Address City/[facility]/Zipcode Phone Number [address] [address] [facility] * Cytomegalovirus antibody, IgM (11/28/2017 8:03 AM CDT) CMV IgM Negative [facility] Specimen Blood Performing Organization Address [facility] Phone Number [facility] [address] [place] [address] [phone] [place] [address] * Hepatitis B core antibody, IgM (11/28/2017 8:03 AM CDT) Hep B C IgM NON-REACTIVE Nonreactive [facility] Specimen Blood Performing Organization Address City/[facility] Phone Number [address] * EBV-VCA antibody, IgM (11/28/2017 8:03 AM CDT) EBV VCA IgM Negative [facility] Specimen Blood Performing Organization Address City/[facility] Phone Number [address] * EBV-VCA antibody, IgG (11/28/2017 8:03 AM CDT) EBV VCA IgG Positive [facility] Specimen Blood Performing Organization Address [facility] Phone Number [address] * Hepatitis C PCR, Quantitative (11/28/2017 8:03 AM CDT) HCV PCR, Quantitative HCV RNA not detected HCV RNA not detected [facility] Specimen Blood Narrative Performed At This test uses a Real-Time Polymerase Chain Reaction (RT-PCR) methodology and [facility] was performed using MICHAELA Ampliprep/MICHAELA TaqMan HCV test kit version 2.0 [facility] ([employer] Reportable range for this assay is 15 - 100,000,000 IU per mL (1.18 - 8.00 Log IU/mL). Performing Organization Address City/[facility]/Zipcode Phone Number [address] * RPR (11/28/2017 8:03 AM CDT) RPR Nonreactive Nonreactive [facility] Specimen Blood Performing Organization Address City/[facility]/Zipcode Phone Number [facility] [address] * Hepatitis B surface antibody (11/28/2017 8:03 AM CDT) Hep B S Ab <8.0 <8.0 mIU/mL [facility] Specimen Blood Performing Organization Address City/State/Zipcode Phone Number [address] * Hepatitis B surface antigen (11/28/2017 8:03 AM CDT) hepatitis B Surface Ag NON-REACTIVE Nonreactive [facility] Specimen Blood Performing Organization Address [facility] Phone Number [address] * Cytomegalovirus antibody, IgG (11/28/2017 8:03 AM CDT) CMV IgG Negative [facility] Specimen Blood Performing Organization Address [facility] Phone Number [address] * hCG, quantitative, (11/28/2017 8:03 AM CDT) Only the most recent of 2 results within the time period is included. hCG Quant 4 0 - 10 mIU/mL [facility] Specimen Blood Narrative Performed At Non- Females: <10 mIU/mL [facility] Females: [facility] Gestation AgeReference Range(mIU/mL) 0.2-1 Week5-50 1-2 [id number] 2-3 Weeks 100-5,000 3-4 Weeks 500-10,000 4-5 Weeks 1,000-50,000 5-6 Weeks10,000-100,000 6-8 Weeks15,000-200,000 2-3 Months 10,000-100,000 Performing Organization Address City/[facility] Phone Number [address] * Phosphorus (11/28/2017 8:03 AM CDT) Phosphorus 3.5 2.3 - 4.7 mg/dL [facility] Specimen Blood Performing Organization Address City/[facility] Phone Number [address] * Magnesium (11/28/2017 8:03 AM CDT) Magnesium 2.3 1.6 - 2.6 mg/dL [facility] Specimen Blood Performing Organization Address City/State/[facility] Phone Number [address] * Lactate dehydrogenase (LDH) (11/28/2017 8:03 AM CDT) LDH 161 125 - 220 U/L [facility] Specimen Blood Performing Organization Address City/[facility] Phone Number [address] * Gamma Glutamyl Transferase (GGT) (11/28/2017 8:03 AM CDT) GGT 26 9 - 64 U/L [facility] Specimen Blood Performing Organization Address City/[facility] Phone Number [address] * Creatinine (11/28/2017 8:03 AM CDT) Creatinine 1.00 0.57 - 1.25 mg/dL [facility] EGFR 58Comment: ESTIMATED GFR IS mL/min/1.73 sq m [facility] NOT ACCURATE CREATININE [facility] CLEARANCE IN PREDICTING GLOMERULAR FILTRATION RATE. ESTIMATED GFR IS NOT APPLICABLE FOR DIALYSIS PATIENTS. Specimen Blood Performing Organization Address City/[facility] Phone Number [address] * Lipid panel (11/28/2017 8:03 AM CDT) Triglycerides 63 mg/dL [facility] Cholesterol 234 mg/dL [facility] HDL 72 mg/dL [facility] LDL Calculated 149 mg/dL [facility] Specimen Blood Narrative Performed At Triglyceride Reference Range: [facility] Low Risk <150 [facility] [id number] High Risk 200-499 Very High Risk>=500 Cholesterol Reference Range: Low Risk <200 [id number] High Risk>240 HDL Cholesterol Reference Range: Low Risk >=60 High Risk <40 LDL Cholesterol Reference Range: Optimal<100 Near [id number] [id number] Very High >=190 Performing Organization Address [facility] Phone Number [address] * Blood typing, automated (11/28/2017 8:02 AM CDT) Only the most recent of 2 results within the time period is included. ABO/RH AUTOMATED (BEAKER) B NEGATIVE [facility] Specimen Blood Performing Organization Address City/[facility] Phone Number [address] * Creatinine clearance (11/28/2017 7:55 AM CDT) Creatinine Clearance 149.6 (H) 70.0 - 140.0 mL/min [facility] Volume, Urine 3,300 ml [facility] Creatinine, Ur 71.7 mg/dL [facility] Pathologist: Sherry Mendoza MD [facility] (electronic signature) [facility] Specimen Urine Performing Organization Address City/[facility] Phone Number [address] * Protein, 24 hour urine (11/28/2017 7:55 AM CDT) Protein, 24hr Urine <231 0 - 300 mg/24hr [facility] Volume, Urine 3,300 ml [facility] Protein, Urine <7 0 - 14 mg/dL [facility] Specimen Urine Performing Organization Address City/[facility] Phone Number [address] * Microalbumin, 24 hour urine (11/28/2017 7:55 AM CDT) Volume, Urine 3,300 ml [facility] Microalbumin, Urine <0.5 mg/dL [facility] Microalb, 24H Ur <17 0 - 30 mg/24 hrs [facility] Specimen Urine Performing Organization Address [facility] Phone Number [address] * Microalbumin, random urine (11/17/2017 10:51 AM CDT) Microalbumin, Urine 0.7 mg/dL [facility] Specimen Urine Narrative Performed At Reference Range: No Normals [facility] Performing Organization Address [facility] Phone Number [address] * Protein, random urine (11/17/2017 10:51 AM CDT) Protein, Urine <7 0 - 14 mg/dL [facility] Specimen Urine Performing Organization Address City/[facility] Phone Number [address] * Creatinine, random urine (11/17/2017 10:51 AM CDT) Creatinine, Ur 60.4 mg/dL [facility] Specimen Urine Narrative Performed At Reference Range: No Normals [facility] Performing Organization Address City/[facility]/Zipcode Phone Number [address] [facility] * Hemoglobin A1c (11/17/2017 10:51 AM CDT) Hemoglobin A1C 4.3 4.3 - 6.1 % [facility] Specimen Blood Performing Organization Address City/State/Zipcode Phone Number [facility] [address] [place] [address] [facility] * HLA TYPING CII (11/17/2017 10:50 AM CDT) HLA-DR AG1 7 [facility] HLA-DR AG2 11 [facility] HLA-DR AG3-1 [facility] HLA-DR AG3-2 52 [facility] HLA-DR AG4-1 [facility] HLA-DR AG4-2 [facility] HLA-DR AG5-1 [facility] HLA-DR AG5-2 [facility] HLA-DQA1 AG 1-1 02 [facility] HLA-DQA1 AG 1-2 05 [facility] HLA-DQB1 AG 1-1 2 [facility] HLA-DQB1 AG 1-2 7 [facility] HLA-DPA1 AG 1-1 01 [facility] HLA-DPA1 AG 1-2 01 [facility] HLA-DPB1 AG 1-1 02:01 [facility] HLA-DPB1 AG 1-2 02:01 [facility] HLA-AG Notes [facility] HLA-AG Report Comments [id number] WAS DETECTED BY [facility] MOLECULAR METHOD. Specimen Blood Performing Organization Address City/State/Zipcode Phone Number [facility] ONE [facility] Bernardo, MS: [id number], [place] [address] CLIA#[id number] CAP#[id number] UNOS#[id number] [facility] Bernardo, MS: [id number] [place] [address] * HLA TYPING CI (11/17/2017 10:50 AM CDT) HLA-A AG1 2 [facility] HLA-A AG2 24 [facility] HLA-B AG1 61 [facility] HLA-B AG2 57 [facility] HLA-C AG1 2 [facility] HLA-C AG2 6 [facility] HLA-B BW1 6 [facility] HLA-B BW2 4 [facility] HLA-AG Notes [facility] HLA-AG Report Comments [facility] Specimen Blood Performing Organization Address City/State/Zipcode Phone Number [facility] Don Chang, MS: [id number], [place] [address] CLIA#[id number] CAP#[id number] UNOS#[id number] [facility] Don Chang, MS: [id number] [place] [address] * CBC with platelet count + automated diff (11/17/2017 10:50 AM CDT) WBC 9.4 3.5 - 10.5 K/L [facility] RBC 3.62 (L) 3.93 - 5.22 M/L [facility] Hemoglobin 9.7 (L) 11.2 - 15.7 GM/DL [facility] Hematocrit 33.2 (L) 34.1 - 44.9 % [facility] MCV 91.7 79.4 - 94.8 fL [facility] MCH 26.8 25.6 - 32.2 pg [facility] MCHC 29.2 (L) 32.2 - 35.5 GM/DL [facility] RDW 14.6 (H) 11.7 - 14.4 % [facility] Platelets 406 150 - 450 K/CU MM [facility] MPV 9.5 9.4 - 12.3 fL [facility] nRBC 0 0 - 0 /100 WBC [facility] % Neutros 84 % [facility] % Lymphs 10 % [facility] % Monos 4 % [facility] % Eos 1 % [facility] % Baso 1 % [facility] # Neutros 7.81 (H) 1.56 - 6.13 K/L [facility] # Lymphs 0.97 (L) 1.18 - 3.74 K/L [facility] # Monos 0.41 (H) 0.24 - 0.36 K/L [facility] # Eos 0.07 0.04 - 0.36 K/L [facility] # Baso 0.05 0.01 - 0.08 K/L [facility] Immature 0 0 - 1 % [facility] Granulocytes-[facility] Specimen Blood Performing Organization Address City/[facility] Phone Number [address] [address] [facility] * Hepatic function panel (11/17/2017 10:50 AM CDT) Protein, Total 7.3 6.0 - 8.3 gm/dL [facility] Albumin 4.4 3.5 - 5.0 g/dL [facility] Total Bilirubin 0.2 0.2 - 1.2 mg/dL [facility] Bilirubin, Direct 0.1 0.1 - 0.5 mg/dL [facility] Alkaline Phosphatase 89 40 - 150 U/L [facility] AST 18 5 - 34 U/L [facility] ALT 16 6 - 55 U/L [facility] Specimen Blood Performing Organization Address City/[facility] Phone Number [address] [address] [facility] * Basic Metabolic Panel (11/17/2017 10:50 AM CDT) Sodium 142 136 - 145 meq/L [facility] Potassium 4.6 3.5 - 5.1 meq/L [facility] Chloride 107 98 - 107 meq/L [facility] CO2 27 22 - 29 meq/L [facility] BUN 15 7 - 21 mg/dL [facility] Creatinine 0.98 0.57 - 1.25 mg/dL [facility] Glucose 105 70 - 105 mg/dL [facility] Calcium 9.7 8.4 - 10.2 mg/dL [facility] EGFR 59Comment: ESTIMATED GFR IS mL/min/1.73 sq m [facility] NOT ACCURATE CREATININE [facility] CLEARANCE IN PREDICTING GLOMERULAR FILTRATION RATE. ESTIMATED GFR IS NOT APPLICABLE FOR DIALYSIS PATIENTS. Specimen Blood Performing Organization Address City/State/Zipcode Phone Number [facility] [address] [place] [address] [facility] after 06/29/2017 Insurance Payer Benefit Subscriber ID Type Phone Address Plan / Group [facility] xxxxxxxxxxx MEDICARE ADV
--- OUTSIDE RECORDS SUMMARY | 2018-06-30 11:39 | XMS REPORT | Summary of Care ---
Author Organization Unknown Address Unknown Phone Unavailable Encounter HQ Encntr_jase(MIN) [id number] Date(s): 02/01/14 - 02/01/14 [facility] [address] Discharge Disposition: Home Physician Attending: Rashid Dewitt MD Physician_Referring: Rashid Dewitt MD Reason for Visit SCREENING Problem List No data available for this section Allergies, Adverse Reactions, Alerts Substance Reaction Severity Status NKDA Active Medications No data available for this section Medications Administered During Your Visit No data available for this section Immunizations No data available for this section
--- OUTSIDE RECORDS SUMMARY | 2018-06-30 11:39 | XMS REPORT | Summary of Care ---
Author Author [facility] Organization [facility] Address Unknown Phone Unavailable Encounter HQ Davion(FIN) [id number] Date(s): 09/26/17 - 09/26/17 [facility] [address], [address] [place] [address] [phone] Attending Physician: Glenn Jesus MD Vital Signs No data available for this section Problem List Condition Effective Dates Status Health Status Informant Acne(Confirmed) Resolved Hay fever(Confirmed) Resolved Bronchitis(Confirmed Resolved ) Diarrhea(Confirmed) Resolved Abnormal Resolved EKG(Confirmed) HPV (human papilloma Resolved virus) infection(Confirmed) Bladder Resolved infection(Confirmed) Obesity(Confirmed) Resolved Psoriasis(Confirmed) Resolved Urinary tract Resolved infection(Confirmed) Chicken Resolved pox(Confirmed) Allergies, Adverse Reactions, Alerts Substance Reaction Severity Status NKDA Active Medications No data available for this section Results No data available for this section Immunizations No data available for this section Procedures Procedure Date Related Diagnosis Body Site Status Cervical biopsy Completed Colonoscopy Completed Laparoscopy Completed Social History Social History Type Response Smoking Status Current every day smoker; Type: Cigarettes; Lives with someone who smokes; Cigarette Smoking Last 365 Days Yes; Reg Smoking Cessation Counseling Yes; Tobacco use per day: 20; entered on: 03/28/17 Assessment and Plan No data available for this section
--- OUTSIDE RECORDS SUMMARY | 2018-06-30 11:39 | XMS REPORT | Summary of Care ---
Author Author [facility] Organization [facility] Address Unknown Phone Unavailable Encounter NEFTALI Ricardo(MIN) [id number] Date(s): 09/24/16 - 09/24/16 [facility] [address] [place] [address]- Discharge Disposition: Home or Self Care Attending Physician: Donavon Mcclellan MD Referring Physician: Donavon Mcclellan MD Vital Signs No data available for [...] Procedures Procedure Date Related Diagnosis Body Site Cervical biopsy Colonoscopy Laparoscopy Social History Social History Type Response Smoking Status Current every day smoker; Type: Cigarettes; Tobacco use per day: 20; Lives with someone who smokes; Cigarette Smoking Last 365 Days Yes; Reg Smoking Cessation Counseling Yes Assessment and Plan No data available for this section
--- OUTSIDE RECORDS SUMMARY | 2018-06-30 11:39 | XMS REPORT | Summary of Care ---
Author Author [facility] Organization [facility] Address Unknown Phone Unavailable Encounter NEFTALI Ricardo(MIN) [id number] Date(s): 11/29/16 - 11/29/16 [facility] [address] [place] [address]- Discharge Disposition: Home or Self Care Attending Physician: Faizan Orourke MD Referring Physician: Faizan Orourke MD Vital Signs No data available for [...]
--- OUTSIDE RECORDS SUMMARY | 2018-06-30 11:39 | XMS REPORT | Summary of Care ---
Author Author [facility] Organization [facility] Address Unknown Phone Unavailable Encounter HQ Davion(FIN) [id number] Date(s): 09/26/17 - 09/26/17 [facility] [address], [address] [place] [address] [phone] Attending Physician: Glenn Jesus MD Vital Signs [...]
--- OUTSIDE RECORDS SUMMARY | 2018-06-30 11:39 | XMS REPORT | Summary of Care ---
Author Author [facility] Organization [facility] Address Unknown Phone Unavailable Encounter NEFTALI Ricardo(MIN) [id number] Date(s): 04/05/16 - 04/05/16 [facility] [address] [place] [address]- [phone] Discharge Disposition: Home or Self Care Attending Physician: Glenn Jesus MD Referring Physician: Glenn Jesus MD Vital Signs No [...]
--- OUTSIDE RECORDS SUMMARY | 2018-06-30 11:39 | XMS REPORT | Summary of Care ---
Author Author [facility] Organization [facility] Address Unknown Phone Unavailable Encounter HQ Encntr_alikashif(FIN) [id number] Date(s): 08/15/15 - 08/15/15 [facility] [address] [place] [address]- [phone] Discharge Disposition: Home Attending Physician: Manju Reynolds MD Referring Physician: Physician, Non Associated MD Vital Signs No data available for this section Problem List No data available for this section Allergies, Adverse Reactions, Alerts Substance Reaction Severity Status NKDA Active Medications No data available for this section Results No data available for this section Immunizations No data available for this section Procedures No data available for this section Social History No data available for this section Assessment and Plan No data available for this section
--- OUTSIDE RECORDS SUMMARY | 2018-06-30 11:39 | XMS REPORT | Summary of Care ---
Author Author [facility] Organization [facility] Address Unknown Phone Unavailable Encounter NEFTALI Ricardo(MIN) [id number] Date(s): 04/14/17 - 04/14/17 [facility] [address] [place] [address]- Discharge Disposition: Home or Self Care Attending Physician: Estuardo Raymond MD Referring Physician: Estuardo Raymond MD Vital Signs No data available for [...]
--- OUTSIDE RECORDS SUMMARY | 2018-06-30 11:39 | XMS REPORT | Continuity of Care Document ---
Author Author [facility] Interface Address Unknown Phone Unavailable Problems Problem Status Onset Date Classification Date Reported Comments Source J32.9 Active 04/09/2017 [facility] N18.2 CHRONIC KIDNEY DISEASE, STAGE 2 (M Active 11/27/2016 [facility] DX; ROUTINE SCREENING Active 08/21/2016 [facility] N13.30=UNSPECIFIED HYDRONEPHROSIS Active 02/23/2016 [facility] ROUTINE MAMMOGRAM Active 08/01/2015 [facility] SCREENING Active 01/13/2014 [facility] Acne Resolved Problem 01/02/2018 [facility], Medical [facility] Hay fever Resolved Problem 01/02/2018 [facility] Bronchitis Resolved Problem 01/02/2018 [facility] Diarrhea Resolved Problem 01/02/2018 [facility] Abnormal EKG Resolved Problem 01/02/2018 [facility] 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>) Resolved Problem 01/02/2018 [facility] Bladder infection Resolved Problem 01/02/2018 [facility] Obesity Resolved Problem 01/02/2018 [facility] Psoriasis Resolved Problem 01/02/2018 [facility] Urinary tract infection Resolved Problem 01/02/2018 [facility] Chicken pox Resolved Problem 01/02/2018 [facility] ENCOUNTER FOR OTH SCREENING FOR MALIGNAN Active [facility] CHRONIC KIDNEY DISEASE, STAGE 2 (MILD) Active [facility] CHRONIC SINUSITIS, UNSPECIFIED Active [facility] Medications Medication Details Route Status Patient Instructions Ordering Provider Order Date Source Allergies, Adverse Reactions, Alerts Substance Category Reaction Severity Reaction type Status Date Reported Comments Source Immunizations Immunization Date Given Site Status Last Updated Comments Source Results Order Name Results Value Reference Range Date Interpretation Comments Source Sinus wo contrast CT Sinus wo contrast CT Sinus wo contrast CT CLINICAL INDICATION: DLP 384 - CHRONIC SINUSITIS; COMPARISON: None TECHNIQUE: Contiguous transaxial images of the paranasal sinuses were performed without administration of IV contrast. Coronal and sagittal reconstructions were obtained. FINDINGS: PARANASAL SINUSES: The maxillary sinuses are clear and the osteomeatal complexes are patent. The ethmoid complex is clear and the sphenoethmoidal recesses are patent. The frontal sinuses and the sphenoid sinuses are clear. MASTOIDS: Visualized portion of the mastoid air cells are clear. NASAL CAVITY: The nasal turbinates are unremarkable. No significant septal deviation. SOFT TISSUES and ORBITS: Visualized portions of the facial soft tissues are unremarkable. Orbits are symmetric and grossly unremarkable in appearance. No significant bony abnormality is noted. IMPRESSION: No significant abnormality is noted on the noncontrast CT of the paranasal sinuses. : [id number] 04/14/2017 - - Read by: Luis Price MD Dictated Date/time: 04/14/17 14:29 Electronically Signed by: Luis Price MD 04/14/17 14:35 FINAL REPORT [facility] Retroperitoneal Complete US Retroperitoneal Complete US BILATERAL RENAL ULTRASOUND: HISTORY: Stage II chronic kidney disease, terminal ileitis. FINDINGS: The right kidney is 9.5 cm in length and 4.9 x 5.3 cm in transverse dimension. The left kidney is 10.7 cm in length and 4.7 x 4.7 cm in transverse dimension. There is normal thickness and echogenicity of the renal parenchyma. There is no evidence of cyst, mass, hydronephrosis, or calculi. Satisfactory qualitative color-flow is demonstrated bilaterally. There is moderate volume urine in the bladder without significant abnormalities demonstrated. IMPRESSION: No significant ultrasound abnormalities of the kidneys. [id number] 11/29/2016 - - Read by: Rudi Cortes MD Dictated Date/time: 11/29/16 07:50 Electronically Signed by: Rudi Cortes MD 11/29/16 07:52 FINAL REPORT [facility] Breast Mammo Scrn VIN w bunny incl CAD MA Breast Mammo Scrn VIN w bunny incl CAD MA - BREAST MAMMO SCRN VIN W BUNNY INCL CAD MA BILATERAL DIGITAL SCREENING MAMMOGRAM 3D/2D WITH CAD: 09/24/2016 CLINICAL: Routine. 2D digital mammographic images and 3D digital tomosynthesis images were obtained in the CC and MLO projections. Current study was evaluated with a Computer Aided Detection (CAD) system. Comparison is made to exams dated: 08/15/2015 mammogram, 02/01/2014 mammogram, 10/29/2011 mammogram - [facility] and 05/27/2008 mammogram. There are scattered fibroglandular densities in both breasts. There are benign intramammary nodes in both breasts. No significant masses, calcifications, or other findings are seen in either breast. There has been no significant interval change. IMPRESSION: BENIGN There is no mammographic evidence of malignancy. A 1 year screening mammogram is recommended. Tor Lu M.D. ap/penrad:09/24/2016 15:00:41 Childbirth Educator: Jackeline Alfaro, [facility] This exam was dictated and interpreted by [id number] for [facility]. letter sent: Normal exam Mammogram BI-RADS: 2 Benign 09/24/2016 - - Read by: Tor Lu MD Dictated Date/time: 09/24/16 15:00 Electronically Signed by: Tor Lu MD 09/24/16 15:00 FINAL REPORT [facility] Retroperitoneal Complete US Retroperitoneal Complete US BILATERAL RENAL ULTRASOUND: HISTORY: Difficult urination for 6 months. FINDINGS: The right kidney is 9.5 cm in length and 4.5 x 4.3 cm in transverse dimension. The left kidney is 10.8 cm in length and 4.4 x 4.3 cm in transverse dimension. There is normal thickness and echogenicity of the renal parenchyma. There is no evidence of cyst, mass, hydronephrosis, or calculi. Satisfactory qualitative color-flow is demonstrated bilaterally. There is moderate volume urine in the bladder without significant wall thickening or intraluminal abnormalities demonstrated. IMPRESSION: No significant ultrasound abnormalities of the kidneys. [id number] 04/05/2016 - - Read by: Rudi Cortes MD Dictated Date/time: 04/05/16 09:12 Electronically Signed by: Rudi Cortes MD 04/05/16 09:14 FINAL REPORT [facility] Digital Mammo Screening Vin MA Digital Mammo Screening Vin MA - DIGITAL MAMMO SCREENING VIN MA BILATERAL DIGITAL SCREENING MAMMOGRAM WITH CAD: 08/15/2015 CLINICAL: Routine. Current study was evaluated with a Computer Aided Detection (CAD) system. Comparison is made to exams dated: 02/01/2014 mammogram, 10/29/2011 mammogram - [facility] and 05/27/2008 mammogram. There are scattered fibroglandular densities in both breasts. There is a benign appearing density in the right breast. No significant masses, calcifications, or other findings are seen in either breast. There has been no significant interval change. IMPRESSION: BENIGN There is no mammographic evidence of malignancy. A 1 year screening mammogram is recommended. Pb ralpht/penrad:08/15/2015 11:38:33 Childbirth Educator: Kylie Valenzuela [facility] This exam was dictated and interpreted by [id number] for [facility]. letter sent: Normal exam Mammogram BI-RADS: 2 Benign 08/15/2015 - - Read by: Pb Ordaz MD Dictated Date/time: 08/15/15 11:38 Electronically Signed by: Pb Ordaz MD 08/15/15 11:38 FINAL REPORT [facility] Digital Mammo Screening Vin MA Digital Mammo Screening Vin MA - DIGITAL MAMMO SCREENING VIN MA BILATERAL DIGITAL SCREENING MAMMOGRAM WITH CAD: 02/01/2014 CLINICAL: Routine. Current study was evaluated with a Computer Aided Detection (CAD) system. Comparison is made to exams dated: 10/29/2011 mammogram - [facility] and 05/27/2008 mammogram. There are scattered fibroglandular densities in both breasts. There is a benign appearing density in the right breast. No significant masses, calcifications, or other findings are seen in either breast. There has been no significant interval change. IMPRESSION: BENIGN There is no mammographic evidence of malignancy. A screening mammogram in one year is recommended. Pb ralpht/penrad:02/02/2014 07:49:45 Childbirth Educator: Kylie Valenzuela, [facility] This exam was dictated and interpreted by [id number] for [facility]. letter sent: Normal exam Mammogram BI-RADS: 2 Benign 02/01/2014 - - Read by: Pb Ordaz MD Dictated Date/time: 02/02/14 07:49 Electronically Signed by: Pb Ordaz MD 02/02/14 07:49 FINAL REPORT [facility] Vital Signs Vital Sign Value Date Comments Source Encounters Location Location Details Encounter Type Encounter Number Reason For Visit Attending Provider ADM Date DC Date Status Source [facility] Outpatient [id number] Manasaghada Dewitt 02/01/2014 02/02/2014 [facility] Outpatient [id number] Non Physician 08/15/2015 08/16/2015 [facility] Outpatient [id number] [facility] 02/23/2016 [facility] Outpatient [id number] [facility] 04/05/2016 [facility] Outpatient [id number] Y[facility] 04/05/2016 04/06/2016 [facility] Outpatient [id number] Donavon Muñoznimisha 09/24/2016 09/25/2016 [facility] Outpatient [id number] [facility] 11/26/2016 [facility] Outpatient [id number] Faizan Orourke 11/29/2016 11/30/2016 [facility] Outpatient [id number] [facility] 12/25/2016 [facility] Outpatient [id number] [facility] 03/28/2017 [facility] Outpatient [id number] Estuardo Raymond 04/14/2017 04/15/2017 [facility] Outpatient [id number] [facility] 09/26/2017 [facility] Ambulatory Pre-Reg [id number] [facility] 09/26/2017 09/26/2017 [facility] Procedures Procedure Code Date Perfomer Comments Source Cervical biopsy [id number] [facility] [id number] [id number] [id number] [facility] Colonoscopy [id number] [facility] Laparoscopy [id number] [facility]
--- OUTSIDE RECORDS SUMMARY | 2018-06-30 11:40 | XMS REPORT ---
Author Author [facility] Address Unknown Phone Unavailable Care Team Providers Care Trailer Assembler Name Role Phone TAMICA LOZANO Unavailable Unavailable Problems This patient has no known problems. Allergies, Adverse Reactions, Alerts This patient has no known allergies or adverse reactions. Medications This patient has no known medications. Results Test Description Test Time Test Comments Text Results Atomic Results Result Comments HEPATITIS C PCR, QUANTITATIVE 2017-12-02 06:43:00 HCV RESULT COMPONENT (VAIBHAV) (test pear=8905) HCV RNA not detected HCV RNA not detected This test uses a Real-Time Polymerase Chain Reaction (RT-PCR) methodology and wa s performed using MICHAELA Ampliprep/MICHAELA TaqMan HCV test kit version 2.0 ([employer]).Reportable range for this assay is 15 - 100,000,000 IU per mL (1.18 - 8.00 Log IU/mL).URINE [id number] 10:14:00* Test Item Value Reference Range Comments CULTURE (VAIBHAV) (test ptux=9655) ENTEROCOCCUS SPECIES 10-19,000 col/mL Enterococcus species Ampicillin (test code=26) Linezolid (test code=40) Nitrofurantoin (test code=23) Tetracycline (test code=2) Vancomycin (test code=13) 30-39,000 col/mL skin [id number] 01:58:00* Test Item Value Reference Range Comments RPR SCREEN (VAIBHAV) (test qxiq=225) Nonreactive Nonreactive CT, CTA [id number] 20:06:00CTA of abdomen and pelvis with and without contrast to visually display the aorta, renal arteries, iliac, and kidneys to be able to follow in the OR during donor nephrectomy. Please describe venous anatomy of both kidneys in all cases. Please measure distance from aorta to renal artery bifurcation. If pt is allergic to iodine, follow protocol prior to testing. Please provide 3-D reconstruction.[facility]insREPORT STATUS:A Addendum: November 28, 2017 2010 hours I have reviewed the CT images for this study and I concur with the nonvascular imaging findings as dictated. Signed: Slime Goodwin MDReport Verified Date/Time: 11/28/2017 20:06:37 Reading Location: [place] [address] Angio Body Reading RoomAddendum EndsFINAL REPORT CT angiography of the abdominal aorta and renal arteries, 28 Nov 2017. Comparison: None available. INDICATION: This is a 52 year old female being evaluated as a potential renal donor. This study is performed in an attempt to avoid an invasive procedure. TECHNIQUE: Spiral acquisition before and during intravenous contrast administration using a Retidoc multidetector CT scanner. Images were obtained before and during the dynamic passage of intravenous contrast material. Multi-planar 3-D volume-rendering reconstruction was performed using an independent workstation interactively by the interpreting physician as well as the 3-D specialist for optimal visualisation of the vital anatomy for renal transplantation. Please refer to the contrast sheet scanned in the [employer] system for the amount and route of [...] proximally, and bifurcates at a distance of appro ximately 4.3 cm from its takeoff. The two left renal artery arises 5 mm above ea ch other. The superior left renal artery measures approximately 5.6 x 4.1 mm at its takeoff, and the inferior accessory renal artery small in size, measuring ap proximately 2 mm in diameter. The superior left renal artery reaches the renal p sulaiman at a distance of approximately 4.7 cm and the inferior sensory left renal artery reaches the lower pole of the kidney, at a distance of approximately 5.5 cm. There are single left and right renal veins that drain normally into inferio r vena cava (i.e. the left renal vein is anterior to the IVC). The left renal vein enters the IVC with a calibre of 4.8 x 14.4 mm and the right renal vein ent ers the IVC will a calibre of 8.3 x 10.7 mm. In addition, there is also anothe r tiny inferior right renal vein, and straight 1.9 cm below the more superior ri ght renal vein. As a tiny vein, approximately 2 mm in diameter. The coeliac axis , SMA, and ANDI are widely patent. The mesenteric veins are widely patent. NON-VA SCULAR:- The lung bases are unremarkable. No pleural effusion is identified. Min imal dependent changes are seen. The spleen, liver, gallbladder and pancreas chanelle ear normal. Tiny hypodensities identified in the liver, too small to characteriz e, likely represent tiny cysts. The liver edge is smooth. No abnormal enhancing structure is noted. The adrenal glands are normal in size and shape. Both k idneys are normal in size and shape. There is no evidence for hydronephrosis, or perirenal fluid collection. No renal stone is present. No renal cyst is identif ied. The right kidney measures 10.3 cm in length and with a parenchymal volume o f 125 cc. The left kidney measures 10.9 cm in length and with a parenchymal vol ume of 123 cc. There are single ureters, bilaterally. There is no significant re troperitoneal adenopathy. No free fluid or free air is identified. The uterus is present. No obvious abnormal adnexal masses seen. CT is not optimised in the assessment of pelvic gynaecological structures. Bowel is not well evaluated in C T angiography as enteric contrast is not given. No gross abnormality is identif ied. The appendix appears unremarkable. No acute bony pathology is seen. CONCLU SIONS: 1. The kidneys are normal in size and shape. There is no acute renal pa thology. Quantitative dimensions and volumes are as described above. 2. Two left and single right renal arteries, single left and two right renal veins are seen. They are patent with no stenosis or venous thrombosis. 3. The abdominal aorta is normal in course, calibre and contour. There is no evidence of acu te aortic pathology, specifically, there is no dissection, intramural hematoma, or contained rupture. Quantitative dimension of the aorta are as noted. 4. Oth er findings as described above. 5. An addendum will be dictated regarding the non-vascular findings as the Activity Therapy Teacher Radiologist. Signed: Jef Gaxiola Verified Date/Time: 11/28/2017 14:45:57 Reading Location: [facility] P047 C ardiology MRI TININE [id number] 15:03:00* Test Item Value Reference Range Comments CREATININE CLEARANCE (BEAKER) (test fmqe=432) 149.6 mL/min 70.0-140.0 VOLUME, TOTAL (BEAKER) (test zefq=3647) 3300 ml CREATININE URINE (BEAKER) (test saen=503) 71.7 mg/dL [id number] (BEAKER) (test tacf=6091) Sherry Mendoza MD (electronic signature) RAD, CHEST, 2 [id number] 11:50:00Reason for Exam:->Potential living donor for kidney transplant [facility] 2 views 11/28/2017 11:50 AM CLINICAL HISTORY: Potential living donor for kidney transplant COMPARISON: None available FINDINGS: The lungs are clear. Cardiomediastinal contours are within normal limits. The central pulmonary vasculature is not engorged. The visualized skeleton is intact. IMPRESSION: No acute radiographic abnormalities. Signed: Augustus Cervanteseport Verified Date/Time: 11/28/2017 11:50:53 Reading Location: [facility] Radiology Reading Room MEGALOVIRUS ANTIBODY, [id number] 11:43:00* Test Item Value Reference Range Comments CYTOMEGALOVIRUS IGG ANTIBODY (BEAKER) (test xrcu=470) Negative CYTOMEGALOVIRUS ANTIBODY, [id number] 11:43:00* Test Item Value Reference Range Comments CYTOMEGALOVIRUS IGM ANTIBODY (BEAKER) (test irxn=722) Negative EBV-VCA ANTIBODY, [id number] 11:43:00* Test Item Value Reference Range Comments WAQAR-CHAPMAN VCA IGG (BEAKER) (test gorv=862) Positive EBV-VCA ANTIBODY, [id number] 11:43:00* Test Item Value Reference Range Comments WAQAR-CHAPMAN VCA IGM (BEAKER) (test qekn=768) Negative HEPATITIS B SURFACE [id number] 09:44:00* Test Item Value Reference Range Comments HEPATITIS B SURFACE ANTIBODY (BEAKER) (test asvy=236) < mIU/mL <8.0 PROTEIN, 24 HOUR [id number] 09:43:00* Test Item Value Reference Range Comments PROTEIN, 24HR URINE (BEAKER) (test wpza=9394) < mg/24hr 0-300 VOLUME, TOTAL (BEAKER) (test rudu=4685) 3300 ml PROTEIN, URINE (BEAKER) (test dxbx=3146) < mg/dL 0-14 MICROALBUMIN, 24 HOUR [id number] 09:43:00* Test Item Value Reference Range Comments VOLUME, TOTAL (BEAKER) (test wzvz=6439) 3300 ml MICROALBUMIN URINE (BEAKER) (test cldp=4403) < mg/dL MICROALBUMIN 24 HOUR URINE (BEAKER) (test jlgb=419) < mg/24 hrs 0-30 HCG, QUANTITATIVE, [id number] 09:17:00* Test Item Value Reference Range Comments GONADOTROPIN, CHORIONIC (HCG) QUANT (BEAKER) (test syav=005) 4 mIU/mL 0-10 Non- Females: <10 mIU/mL Females: Gestation Age Reference Range(mIU/mL) 0.2-1 Week 5-50 1-2 Weeks 50-500 2-3 Weeks 100-5,000 3-4 Weeks 500-10,000 4-5 Weeks 1,000-50,000 5-6 Weeks 10,000-100,000 6-8 Weeks 15,000-200,000 2-3 Months 10,000-100,000 HEPATITIS B SURFACE ANTIGEN 2017-11-28 09:17:00* Test Item Value Reference Range Comments HEPATITIS B SURFACE ANTIGEN (2) (BEAKER) (test rmgo=0648) Nonreactive Nonreactive HEPATITIS B CORE ANTIBODY, [id number] 09:17:00* Test Item Value Reference Range Comments HEPATITIS B CORE IGM ANTIBODY (BEAKER) (test wxxb=912) Nonreactive Nonreactive HIV-1 ANTIGEN WITH HIV-1/2 [id number] 09:17:00* Test Item Value Reference Range Comments HIV-1 ANTIGEN WITH HIV 1\T\2 ANTIBODY (2) (BEAKER) (test aigy=3774) Nonreactive Nonreactive [id number] 09:01:00* Test Item Value Reference Range Comments PHOSPHORUS (BEAKER) (test qkin=515) 3.5 mg/dL 2.3-4.7 [id number] 09:01:00* Test Item Value Reference Range Comments MAGNESIUM (BEAKER) (test ytfa=763) 2.3 mg/dL 1.6-2.6 LIPID [id number] 09:01:00* Test Item Value Reference Range Comments TRIGLYCERIDES (BEAKER) (test jaog=952) 63 mg/dL CHOLESTEROL (BEAKER) (test oblb=145) 234 mg/dL HDL CHOLESTEROL (BEAKER) (test pisq=823) 72 mg/dL LDL CHOLESTEROL CALCULATED (ESTERAKER) (test cmqb=201) 149 mg/dL Triglyceride Reference Range: Low Risk <150 Borderline 150-199 High Risk 200-499 Very High Risk >=500Cholesterol Reference Range: Low Risk <200 Borderline 200-239 High Risk >240HDL Cholesterol Reference Range: Low Risk >=60 High Risk <40LDL Cholesterol Reference Range: Optimal <100 Near Optimal 100-129 Borderline 130-159 High 160-189 Very High >=190 [id number] 09:01:00* Test Item Value Reference Range Comments CREATININE (BEAKER) (test iqym=224) 1.00 mg/dL 0.57-1.25 EGFR (ESTERAKER) (test snvi=1083) 58 mL/min/1.73 sq m ESTIMATED GFR IS NOT ACCURATE CREATININE CLEARANCE IN PREDICTING GLOMERULAR FILTRATION RATE. ESTIMATED GFR IS NOT APPLICABLE FOR DIALYSIS PATIENTS. GAMMA GLUTAMYL TRANSFERASE (GGT)2017-11-28 09:01:00* Test Item Value Reference Range Comments GAMMA GLUTAMYL TRANSFERASE (BEAKER) (test sxnf=115) 26 U/L 9-64 LACTATE DEHYDROGENASE (LDH)2017-11-28 09:01:00* Test Item Value Reference Range Comments LACTATE DEHYDROGENASE (BEAKER) (test xywq=856) 161 U/L 125-220 URINALYSIS W/ [id number] 08:55:00* Test Item Value Reference Range Comments COLOR (BEAKER) (test oibi=447) Yellow CLARITY (BEAKER) (test ofdp=334) Clear SPECIFIC GRAVITY UA (BEAKER) (test asih=534) 1.017 1.001-1.035 PH UA (BEAKER) (test emat=357) 5.0 5.0-8.0 PROTEIN UA (BEAKER) (test zfcu=087) Negative Negative GLUCOSE UA (BEAKER) (test oixq=306) Negative Negative KETONES UA (BEAKER) (test ijtb=429) Negative Negative BILIRUBIN UA (BEAKER) (test dlxu=183) Negative Negative BLOOD UA (BEAKER) (test chnk=942) Negative Negative NITRITE UA (BEAKER) (test mjvh=917) Negative Negative LEUKOCYTE ESTERASE UA (BEAKER) (test mpta=599) Trace Negative UROBILINOGEN UA (BEAKER) (test iwli=181) 0.2 mg/dL 0.2-1.0 RBC UA (BEAKER) (test psoq=811) < /HPF WBC UA (BEAKER) (test cooc=825) 1 /HPF SOURCE(BEAKER) (test gquc=9004) [id number] 08:39:00* Test Item Value Reference Range Comments PROTIME (BEAKER) (test gmzq=636) 16.2 seconds 11.7-14.7 INR (BEAKER) (test bdxj=511) 1.3 <=5.9 PARTIAL THROMBOPLASTIN TIME (BEAKER) (test bjgc=781) 28.9 seconds 22.5-36.0 RECOMMENDED COUMADIN/WARFARIN INR THERAPY RANGESSTANDARD DOSE: 2.0 - 3.0 Inclu david: PROPHYLAXIS for venous thrombosis, systemic embolization; TREATMENT for mack ous thrombosis and/or pulmonary embolus.HIGH RISK: Target INR is 2.5-3.5 for pat ients with mechanical heart valves.URINE [id number] 14:06:00* Test Item Value Reference Range Comments CULTURE (BEAKER) (test evfw=1478) >100,000 col/mL Beta-hemolytic streptococcus group B, by serological grouping 20-29,000 col/mL skin floraHEMOGLOBIN [id number] 13:27:00* Test Item Value Reference Range Comments HEMOGLOBIN A1C (BEAKER) (test bxub=524) 4.3 % 4.3-6.1 PROTEIN, RANDOM [id number] 12:47:00* Test Item Value Reference Range Comments PROTEIN, URINE (BEAKER) (test dkvp=7074) < mg/dL 0-14 CREATININE, RANDOM [id number] 12:43:00* Test Item Value Reference Range Comments CREATININE URINE (BEAKER) (test afzw=656) 60.4 mg/dL Reference Range: No NormalsMICROALBUMIN, RANDOM [id number] 12:43:00* Test Item Value Reference Range Comments MICROALBUMIN URINE (BEAKER) (test dgcq=2322) 0.7 mg/dL Reference Range: No NormalsURINALYSIS W/ [id number] 12:04:00* Test Item Value Reference Range Comments COLOR (BEAKER) (test aehb=927) Yellow CLARITY (BEAKER) (test yryh=204) Clear SPECIFIC GRAVITY UA (BEAKER) (test ywmf=687) 1.009 1.001-1.035 PH UA (BEAKER) (test vyly=434) 5.0 5.0-8.0 PROTEIN UA (BEAKER) (test nmjh=659) Negative Negative GLUCOSE UA (BEAKER) (test uavf=541) Negative Negative KETONES UA (BEAKER) (test gxbd=290) Negative Negative BILIRUBIN UA (BEAKER) (test uemb=573) Negative Negative BLOOD UA (BEAKER) (test hgze=232) Negative Negative NITRITE UA (BEAKER) (test rueh=514) Negative Negative LEUKOCYTE ESTERASE UA (BEAKER) (test djzn=275) Large Negative UROBILINOGEN UA (BEAKER) (test rfmn=942) 0.2 mg/dL 0.2-1.0 RBC UA (BEAKER) (test lilt=036) 1 /HPF WBC UA (BEAKER) (test hxep=151) 11 /HPF SQUAMOUS EPITHELIAL (BEAKER) (test mlxf=983) 2 /HPF SOURCE(BEAKER) (test ndkv=9685) HEPATIC FUNCTION [id number] 12:04:00* Test Item Value Reference Range Comments TOTAL PROTEIN (BEAKER) (test izuc=262) 7.3 gm/dL 6.0-8.3 ALBUMIN (BEAKER) (test nczb=6782) 4.4 g/dL 3.5-5.0 BILIRUBIN TOTAL (BEAKER) (test husp=532) 0.2 mg/dL 0.2-1.2 BILIRUBIN DIRECT (BEAKER) (test itpz=166) 0.1 mg/dL 0.1-0.5 ALKALINE PHOSPHATASE (BEAKER) (test kbyn=481) 89 U/L 40-150 AST (SGOT) (BEAKER) (test hybd=358) 18 U/L 5-34 ALT (SGPT) (BEAKER) (test ixea=474) 16 U/L 6-55 BASIC METABOLIC [id number] 12:04:00* Test Item Value Reference Range Comments SODIUM (BEAKER) (test gvpd=813) 142 meq/L 136-145 POTASSIUM (BEAKER) (test yeqz=828) 4.6 meq/L 3.5-5.1 CHLORIDE (BEAKER) (test knur=020) 107 meq/L 98-107 CO2 (BEAKER) (test hhac=011) 27 meq/L 22-29 BLOOD UREA NITROGEN (BEAKER) (test hcfq=752) 15 mg/dL 7-21 CREATININE (BEAKER) (test cntt=588) 0.98 mg/dL 0.57-1.25 GLUCOSE RANDOM (BEAKER) (test kiau=609) 105 mg/dL 70-105 CALCIUM (BEAKER) (test aafd=344) 9.7 mg/dL 8.4-10.2 EGFR (BEAKER) (test diqp=5602) 59 mL/min/1.73 sq m ESTIMATED GFR IS NOT ACCURATE CREATININE CLEARANCE IN PREDICTING GLOMERULAR FILTRATION RATE. ESTIMATED GFR IS NOT APPLICABLE FOR DIALYSIS PATIENTS. HCG, QUANTITATIVE, [id number] 12:01:00* Test Item Value Reference Range Comments GONADOTROPIN, CHORIONIC (HCG) QUANT (BEAKER) (test jvmt=604) 3 mIU/mL 0-10 Non- Females: <10 mIU/mL Females: Gestation Age Reference Range(mIU/mL) 0.2-1 Week 5-50 1-2 Weeks 50-500 2-3 Weeks 100-5,000 3-4 Weeks 500-10,000 4-5 Weeks 1,000-50,000 5-6 Weeks 10,000-100,000 6-8 Weeks 15,000-200,000 2-3 Months 10,000-100,000 CBC W/PLT COUNT & AUTO [id number] 11:46:00* Test Item Value Reference Range Comments WHITE BLOOD CELL COUNT (BEAKER) (test kaoo=634) 9.4 K/ L 3.5-10.5 RED BLOOD CELL COUNT (BEAKER) (test upwv=024) 3.62 M/ L 3.93-5.22 HEMOGLOBIN (BEAKER) (test pnnl=734) 9.7 GM/DL 11.2-15.7 HEMATOCRIT (BEAKER) (test jlzh=347) 33.2 % 34.1-44.9 MEAN CORPUSCULAR VOLUME (BEAKER) (test ezos=566) 91.7 fL 79.4-94.8 MEAN CORPUSCULAR HEMOGLOBIN (BEAKER) (test xgvo=076) 26.8 pg 25.6-32.2 MEAN CORPUSCULAR HEMOGLOBIN CONC (BEAKER) (test uqvj=526) 29.2 GM/DL 32.2-35.5 RED CELL DISTRIBUTION WIDTH (BEAKER) (test wobx=755) 14.6 % 11.7-14.4 PLATELET COUNT (BEAKER) (test ppsy=306) 406 K/CU MM 150-450 MEAN PLATELET VOLUME (BEAKER) (test cmmw=077) 9.5 fL 9.4-12.3 NUCLEATED RED BLOOD CELLS (BEAKER) (test ehqy=363) 0 /100 WBC 0-0 NEUTROPHILS RELATIVE PERCENT (BEAKER) (test vkst=940) 84 % LYMPHOCYTES RELATIVE PERCENT (BEAKER) (test togz=848) 10 % MONOCYTES RELATIVE PERCENT (BEAKER) (test zowz=654) 4 % EOSINOPHILS RELATIVE PERCENT (BEAKER) (test inpb=999) 1 % BASOPHILS RELATIVE PERCENT (BEAKER) (test oeoq=030) 1 % NEUTROPHILS ABSOLUTE COUNT (BEAKER) (test kkbf=799) 7.81 K/ L 1.56-6.13 LYMPHOCYTES ABSOLUTE COUNT (BEAKER) (test cggj=931) 0.97 K/ L 1.18-3.74 MONOCYTES ABSOLUTE COUNT (BEAKER) (test twpq=910) 0.41 K/ L 0.24-0.36 EOSINOPHILS ABSOLUTE COUNT (BEAKER) (test gxeg=157) 0.07 K/ L 0.04-0.36 BASOPHILS ABSOLUTE COUNT (BEAKER) (test ahlc=619) 0.05 K/ L 0.01-0.08 IMMATURE GRANULOCYTES-RELATIVE PERCENT (BEAKER) (test cjag=9229) 0 % 0-1
--- NOTE | 2018-06-30 12:52 | Diagnostic Imaging Report ---
Exam: Head CT without contrast History: Headache, anxiety Comparison studies: None Technique: Axial images were obtained from the skull base to the vertex. Coronal and sagittal images reconstructed from the axial data. Dose modulation, iterative reconstruction, and/or weight based adjustment of the mA/kV was utilized to reduce the radiation dose to as low as reasonably achievable. Radiation dose: Total DLP: 969 mGy*cm. Estimated effective dose: DLP x 0.015 Intravenous contrast: None Findings: Scalp: No abnormalities. Bones: No fractures, blastic or lytic lesions. Brain sulci: Appropriate for age. Ventricles: Normal in size and configuration. No hydrocephalus. Extra-axial spaces: No masses, no fluid collection. Parenchyma: No abnormal densities. No masses, acute hemorrhage, acute or chronic vascular insults. Sellar/suprasellar region: No abnormalities. Craniocervical junction: Patent foramen magnum. No Chiari one malformation. IMPRESSION: No abnormalities. Signed by: Dr. Rudi Medina M.D. on 06/30/2018 12:49 PM
== END 2018-06-30 13:18 | disposition home or self-care (01) ==
LOC: FSED 11:36
DX: G44.221 Chronic tension-type headache, intractable (principal); F32.9 Major depressive disorder, single episode, unspecified; F31.9 Bipolar disorder, unspecified; K21.9 Gastro-esophageal reflux disease without esophagitis; K50.90 Crohn's disease, unspecified, without complications
CPT/HCPCS: 70450; 99283